=== PATIENT | female | born 1945 | race Caucasian/White ===

== ENCOUNTER 2021-11-29 10:49 | Emergency (ER) | payer BC, MEDICARE ==
[2021-11-29] MEDS ORDERED: Sodium Chloride 0.9% 1,000 ML IV SCH (12:00)
== END 2021-11-29 13:25 | disposition home or self-care (01) ==
LOC: JP.ED 10:49
DX: R00.2 Palpitations (principal); R55 Syncope and collapse; E86.0 Dehydration; Z88.6 Allergy status to analgesic agent; Z79.899 Other long term (current) drug therapy
CPT/HCPCS: 36415; 80048; 85025; 96360; 99284; J7030